=== PATIENT | female | born 1985 | race Two or more races ===

== ENCOUNTER 2023-12-05 14:08 | Emergency (ER) | payer SELFPAY ==
[~2023-12-05] VITALS: Ht 162.6 cm; Wt 78.9 kg
[2023-12-05] MEDS: IBUPROFEN 800 MG TAB PO ONE (15:15)
[2023-12-05] MEDS ORDERED: CEPH250C PO (15:16)
[2023-12-05] MEDS ORDERED: IBUP-1455 PO (15:16)
[2023-12-05 15:55] VITALS: BP 126/76; PULSE 96; RESP 15; TEMP 98; O2SAT 100
== END 2023-12-05 16:05 | disposition home or self-care (01) ==
LOC: ER 14:08
DX: S01.01XA Laceration without foreign body of scalp, initial encounter (principal); Z79.1 Long term (current) use of non-steroidal anti-inflammatories (NSAID); W22.8XXA Striking against or struck by other objects, initial encounter; Y93.89 Activity, other specified; Y92.009 Unspecified place in unspecified non-institutional (private) residence as the place of occurrence of the external cause; Y99.8 Other external cause status
CPT/HCPCS: 12001